=== PATIENT | female | born 1975 | race Two or more races ===

== ENCOUNTER 2022-04-09 12:01 | Day surgery (SDC) | payer OTHER ==
[2022-04-09] MEDS ORDERED: IBU400 MG PO (16:53)
[2022-04-09] MEDS ORDERED: ZITHROMAX500 MG PO (16:53)
== END 2022-04-09 21:55 | disposition home or self-care (01) ==
LOC: CIR.AMB 12:01
PROVIDERS: ATTEND Obstetrics & Gynecology
DX: N84.0 Polyp of corpus uteri (principal); N92.0 Excessive and frequent menstruation with regular cycle